=== PATIENT | male | born 1950 | race Two or more races ===

== ENCOUNTER 2016-07-13 04:47 | Emergency (ER) | payer OTHER, MEDICAID ==
[~2016-07-13] VITALS: Ht 167.6 cm; Wt 71.7 kg
[~2016-07-13 04:47] MED LIST: CEPH-37 PO; FAM20T PO; METF-312 PO; METR500T PO; SUC1LQ PO
[2016-07-13 05:55] VITALS: BP 131/78
[2016-07-13] MEDS ORDERED: LIDOCAINE 1% HCL (LOCAL ANESTH.) INJ 20ML MDV ID ONE (06:30)
[2016-07-13] MEDS ORDERED: BACITRACIN TOP OINT 1 UD PKG TOP ONE (06:30)
[2016-07-13] MEDS ORDERED: TETANUS-DIPTH-ACEL PERTUSSIS 0.5ML SYRG IM ONE (07:15)
== END 2016-07-13 07:32 | disposition home or self-care (01) ==
LOC: ER 04:48
DX: S61.011A Laceration without foreign body of right thumb without damage to nail, initial encounter (principal); E11.9 Type 2 diabetes mellitus without complications; W26.9XXA Contact with unspecified sharp object(s), initial encounter; Y93.89 Activity, other specified; Y99.8 Other external cause status; Y92.219 Unspecified school as the place of occurrence of the external cause
CPT/HCPCS: 12002; 90471; 90715; 99283; J2001

== ENCOUNTER 2020-02-23 01:43 | Inpatient (IN) | payer MEDICARE, MEDICAID ==
[~2020-02-23] VITALS: Ht 167.6 cm; Wt 74.1 kg
[~2020-02-23 01:43] MED LIST changes: -FAM20T PO; +FAMO20TA10 PO; -METF-312 PO; +METF-370 PO; -SUC1LQ PO; +SUCR1SUS10 PO
[2020-02-23] MEDS ORDERED: MORPHINE SULFATE 4 MG/ML SYR/VIAL IV ONE (02:15)
[2020-02-23] MEDS ORDERED: ONDANSETRON HCL 4 MG/2 ML VIAL IV ONE (02:15)
[2020-02-23 03:20] LABS: Basophils # (auto) 0 10 ^3/uL (0-0.2); Eosinophils # (auto) 0 10 ^3/uL (0-0.8); Hemoglobin 15.6 g/dL (13.5-17.5); Monocytes # (auto) 0.8 10 ^3/uL (0-1.3)
[2020-02-23 03:22] LABS: Eosinophils % (auto) 0.1 % (0.0-7.0); Hematocrit 46.9 % (41.0-53.0); Lymphocytes # (auto) 1.1 10 ^3/uL (0.4-5.4); Lymphocytes % (auto) 8.9 % (10.0-50.0); Mean Corpuscular Hemoglobin 27.5 pg (28.0-32.0); Mean Corpuscular Hgb Conc. 33.3 g/dL (32.0-36.0); Mean Corpuscular Volume 82.4 fL (80.0-100.0); Neutrophils # (auto) 10.7 10 ^3/uL (1.6-8.6); Platelet Count (auto) 649 10^3/uL (140-450); Red Blood Cells 5.69 10^6/uL (4.5-5.90); Red Cell Distribution Width 13.6 % (11.8-14.3); White Blood Cell 12.6 10^3/uL (4.4-10.8)
[2020-02-23 03:29] LABS: Lactic Acid w/Reflex 2.6 mmol/L (0.4-2.0)
[2020-02-23 03:38] LABS: Alanine Aminotransferase 81 U/L (16-61); Albumin 2.7 g/dL (3.4-5.0); Amylase 113 U/L (25-115); Anion Gap 8 (5-15); BUN/Creatinine Ratio 18.7; Blood Urea Nitrogen 28 mg/dL (7-18); Calcium 7.7 mg/dL (8.5-10.1); Carbon Dioxide 22 mmol/L (21-32); Chloride 103 mmol/L (98-107); GFR African American 60 mL/min; GFR Non-African American 49 mL/min; Glucose 278 mg/dL (74-106); Lipase 135 U/L (73-393); Magnesium 2.4 mg/dL (1.6-2.6); Potassium 4.4 mmol/L (3.5-5.1); Sodium 133 mmol/L (136-145)
[2020-02-23 03:40] LABS: Alkaline Phosphatase 101 U/L (45-117); Aspartate Aminotransferase 45 U/L (15-37); Bilirubin, Total 0.3 mg/dL (0.2-1.0); Total Protein 7.9 g/dL (6.4-8.2)
[2020-02-23 03:45] LABS: INR 1.04 (0.9-1.15); Partial Thromboplastin Time 24.8 sec (23.0-31.2)
[2020-02-23] MEDS ORDERED: DOXYCYCLINE 100MG/250ML 250 ML IV ONE (04:15)
[2020-02-23] MEDS ORDERED: DexAMETHasone SOD PHOS 10MG/1ML VIAL INJ IV ONE (04:15)
[2020-02-23] MEDS ORDERED: SODIUM CHLORIDE 0.9% 1,000 ML IV ONE (04:15)
[2020-02-23] MEDS ORDERED: NITROGLYCERIN 0.4 MG SL TAB SL PRN (06:30)
[2020-02-23] MEDS ORDERED: DOCUSATE SOD 100 MG CAP PO PRN (06:30)
[2020-02-23] MEDS ORDERED: SODIUM CHLORIDE 0.9% 1,000 ML IV SCH (06:30)
[2020-02-23] MEDS ORDERED: ONDANSETRON HCL 4 MG/2 ML VIAL IV PRN (06:30)
[2020-02-23] MEDS ORDERED: ACETAMINOPHEN 500 MG TAB PO PRN (06:30)
[2020-02-23] MEDS ORDERED: MORPHINE SULF INJ 2 MG/ML SYRINGE 1ML IV PRN (06:30)
[2020-02-23] MEDS ORDERED: DEXTROSE (50%) 50ML SYRG IV PRN (06:45)
[2020-02-23 08:04] LABS: Basophils # (auto) 0 10 ^3/uL (0-0.2); Basophils % (auto) 0.1 % (0.0-2.0); Eosinophils # (auto) 0 10 ^3/uL (0-0.8); Eosinophils % (auto) 0.2 % (0.0-7.0); Lymphocytes # (auto) 0.6 10 ^3/uL (0.4-5.4); Monocytes # (auto) 0.8 10 ^3/uL (0-1.3)
[2020-02-23 08:06] LABS: Hematocrit 41.9 % (41.0-53.0); Hemoglobin 13.9 g/dL (13.5-17.5); Lymphocytes % (auto) 3.9 % (10.0-50.0); Mean Corpuscular Hemoglobin 27.5 pg (28.0-32.0); Mean Corpuscular Hgb Conc. 33.3 g/dL (32.0-36.0); Mean Corpuscular Volume 82.5 fL (80.0-100.0); Monocytes % (auto) 5.8 % (0.0-12.0); Neutrophils # (auto) 12.8 10 ^3/uL (1.6-8.6); Platelet Count (auto) 511 10^3/uL (140-450); Red Blood Cells 5.07 10^6/uL (4.5-5.90); Red Cell Distribution Width 13.6 % (11.8-14.3); White Blood Cell 14.2 10^3/uL (4.4-10.8)
[2020-02-23 08:15] LABS: Calcium 7.6 mg/dL (8.5-10.1); Magnesium 2.3 mg/dL (1.6-2.6); Potassium 4.2 mmol/L (3.5-5.1)
[2020-02-23 08:22] LABS: Albumin 2.2 g/dL (3.4-5.0); BUN/Creatinine Ratio 21.1; Bilirubin, Total 0.4 mg/dL (0.2-1.0)
[2020-02-23] MEDS ORDERED: HEPARIN SODIUM (PORCINE) 5000 UNITS/ML 1ML VIAL ONE (09:05)
[2020-02-23] MEDS: ACCU-CHEK COMFORT CURVE STRIP VI SCH ×4 (09:20→22:11)
[2020-02-23] MEDS: InsuLIN REG 1unit/0.01ml Soln (100units/ml) SC SCH ×4 (09:20→22:19)
[2020-02-23] MEDS: FAMOTIDINE (10MG/ML) 2ML VL IV SCH ×2 (09:47→22:21)
[2020-02-23] MEDS: MULTIPLE VITAMIN TAB PO SCH (09:47)
[2020-02-23] MEDS: DOXYCYCLINE 100MG/250ML 250 ML IV SCH ×2 (09:47→22:21)
[2020-02-23] MEDS: ZINC SULFATE 220mg CAP or TAB PO SCH (09:47)
[2020-02-23] MEDS: DexAMETHasone SOD PHOS 10MG/1ML VIAL INJ IV SCH (09:47)
[2020-02-23] MEDS: ASCORBIC ACID 1,000 MG TAB PO SCH (09:48)
[2020-02-23] MEDS: CHOLECALCIFEROL (VITD3) 2,000 UNIT CAP PO SCH (09:48)
[2020-02-23] MEDS ORDERED: HEPARIN SODIUM (PORCINE) 5000 UNITS/ML 1ML VIAL SC SCH (10:00)
[2020-02-23] MEDS: BUDESONIDE (INHALATION) 180 MCG IH IN SCH ×2 (10:00→22:00)
--- NOTE | 2020-02-23 10:50 | NUR ---
Telemetry admit from [facility] M WETZEL admitted to Telemetry unit after SBAR received WILLY Moon. Patient oriented to Barbi Hernandez, primary RN, unit, room, bed, and unit policies regarding patient care and visiting hours. Patient now on continuous telemetry monitoring, tele box #53 and telemetry reading on arrival to unit is SR @ 73 bpm. Bed set to lowest position/locked, bedside rails up x2, call light within reach. Instructed patient to call for assistance. Patient verbalized understanding. Will continue to monitor q1hr and prn.
[2020-02-23] MEDS: MORPHINE SULFATE 4 MG/ML SYR/VIAL IV PRN ×3 (11:30→22:22)
[2020-02-23] MEDS: ALBUTEROL SULF HFA 90MCG INH 200DOSE IN SCH ×2 (14:00→22:00)
[2020-02-23] MEDS ORDERED: REMDESIVIR PER PHARMACY IV SCH (14:00)
[2020-02-23 17:00] VITALS: BP 131/82
--- NOTE | 2020-02-23 17:30 | NUR ---
CONSENTS REMDESIVIR AND CONVALESCENT PLASMA CONSENTS PLACED IN CHART.
[2020-02-23] MEDS: SUCRALFATE 1 GM/10 ML ORAL SUSP PO SCH ×2 (18:00→22:22)
[2020-02-23] MEDS ORDERED: IOHEXOL 350 MG/ML 100ML IJ ONE (19:23)
--- NOTE | 2020-02-23 19:33 | NUR ---
CADEN SWAB CADEN SWAB COLLECTED AND WALKED TO LAB BY THIS NURSE.
[2020-02-23] MEDS: HYDROcodone-ACET 5/325MG TAB PO PRN (19:58)
[2020-02-23 20:58] LABS: CRP High Sensitivity 13.4 mg/dL (< 0.3)
[2020-02-23 22:00] VITALS: BP 114/79
[2020-02-23] MEDS ORDERED: ENOXAPARIN SOD 80 MG/0.8ML SYRINGE SC SCH (22:00)
[2020-02-23] MEDS: ENOXAPARIN SOD 80 MG/0.8ML SYRINGE SC SCH (22:21)
[2020-02-24] MEDS: HYDROcodone-ACET 5/325MG TAB PO PRN ×2 (00:09→10:30)
--- NOTE | 2020-02-24 00:15 | NUR ---
[facility] COVID 19 SWAB COLLECTED AND WALKED TO LAB. WILL CONTINUE TO MONITOR PATIENT Q1 AND PRN.
[2020-02-24 01:39] VITALS: BP 114/79
[2020-02-24 05:00] VITALS: BP 101/86
[2020-02-24] MEDS: SUCRALFATE 1 GM/10 ML ORAL SUSP PO SCH ×4 (06:57→21:41)
[2020-02-24] MEDS: ACCU-CHEK COMFORT CURVE STRIP VI SCH ×4 (06:57→22:00)
[2020-02-24] MEDS: InsuLIN REG 1unit/0.01ml Soln (100units/ml) SC SCH ×4 (07:02→23:16)
[2020-02-24] MEDS: MORPHINE SULFATE 4 MG/ML SYR/VIAL IV PRN ×3 (07:17→16:52)
--- NOTE | 2020-02-24 07:30 | NUR ---
OPENING NOTE ASSUMED CARE OF PT. ALERT AND ORIENTED. NO S/S OF SOB/DISTRESS NOTED. BED SET TO LOWEST POSITION/LOCKED. BEDSIDE RAILS UP X2, CALL LIGHT WITHIN REACH. INSTRUCTED PT TO CALL FOR ASSISTANCE. UPDATED ON POC. PT VERBALIZED UNDERSTANDING. WILL CONTINUE TO MONITOR Q 1HR AND PRN FOR CHANGES.
[2020-02-24] MEDS: BUDESONIDE (INHALATION) 180 MCG IH IN SCH ×2 (07:37→22:53)
[2020-02-24] MEDS: ALBUTEROL SULF HFA 90MCG INH 200DOSE IN SCH ×3 (07:37→22:53)
--- NOTE | 2020-02-24 07:37 | NUR ---
Respiratory note: PATIENT SEEN, PT WAS COMPLAINING OF PAIN. HR 125, RR 22, SPO2 95% ON 9L SIMPLE MASK. NO MDI'S AT BEDSIDE. WILL CALL PHARMACY.
[2020-02-24 08:11] LABS: Basophils # (auto) 0 10 ^3/uL (0-0.2); Eosinophils # (auto) 0 10 ^3/uL (0-0.8)
[2020-02-24 08:13] LABS: Hematocrit 48.7 % (41.0-53.0); Hemoglobin 15.8 g/dL (13.5-17.5); Lymphocytes # (auto) 0.8 10 ^3/uL (0.4-5.4); Lymphocytes % (auto) 4.4 % (10.0-50.0); Mean Corpuscular Hemoglobin 27.1 pg (28.0-32.0); Mean Corpuscular Hgb Conc. 32.3 g/dL (32.0-36.0); Mean Corpuscular Volume 83.9 fL (80.0-100.0); Monocytes # (auto) 0.9 10 ^3/uL (0-1.3); Monocytes % (auto) 4.6 % (0.0-12.0); Nucleated Red Blood Cells % 1.7 %; Platelet Count (auto) 585 10^3/uL (140-450); Red Blood Cells 5.81 10^6/uL (4.5-5.90); Red Cell Distribution Width 14.1 % (11.8-14.3); White Blood Cell 18.6 10^3/uL (4.4-10.8)
[2020-02-24 08:41] LABS: Albumin 2.3 g/dL (3.4-5.0); BUN/Creatinine Ratio 19.4; Bilirubin, Total 1.1 mg/dL (0.2-1.0); Calcium 8.5 mg/dL (8.5-10.1); Potassium 4.6 mmol/L (3.5-5.1); Total Protein 7.8 g/dL (6.4-8.2)
[2020-02-24 09:00] VITALS: BP 133/82
[2020-02-24] MEDS ORDERED: cefTRIAXone 1GM/50ML D5W 50 ML IV SCH (09:00)
[2020-02-24] MEDS: MULTIPLE VITAMIN TAB PO SCH (10:00)
[2020-02-24] MEDS: DexAMETHasone SOD PHOS 10MG/1ML VIAL INJ IV SCH (10:00)
[2020-02-24] MEDS: FAMOTIDINE (10MG/ML) 2ML VL IV SCH ×2 (10:01→21:40)
[2020-02-24] MEDS: ASCORBIC ACID 1,000 MG TAB PO SCH (10:05)
[2020-02-24] MEDS: ZINC SULFATE 220mg CAP or TAB PO SCH (10:05)
[2020-02-24] MEDS: CHOLECALCIFEROL (VITD3) 2,000 UNIT CAP PO SCH (10:06)
[2020-02-24] MEDS: ENOXAPARIN SOD 80 MG/0.8ML SYRINGE SC SCH ×2 (10:06→21:41)
--- NOTE | 2020-02-24 11:30 | NUR ---
MD rounds/concerns Dr. Tomas rounding and informed that patient pain management is not being effective. MD inspected patient's abdomen and suggested reduce use of opiates for pain management, per MD they can aggravate the abdominal pain. Per MD ok to continue current pain medications. No new orders received at this time will continue care.
[2020-02-24] MEDS: DOXYCYCLINE 100MG/250ML 250 ML IV SCH ×2 (11:51→21:40)
[2020-02-24 13:00] VITALS: BP 116/75
--- NOTE | 2020-02-24 13:50 | NUR ---
New orders received at this time by Dr. Tomas to start patient on Lactulose 60 ml PO one time order, scheduled Lactulose 30 ml PO q6hr for abdominal distension, Colace 100 mg PO BID, Small bowel series with Gastrografin. Orders read back and verified, will carry orders out and continue care.
[2020-02-24] MEDS ORDERED: LACTULOSE 20Gm/30ML SOLN PO ONE (14:00)
[2020-02-24 17:00] VITALS: BP 118/64
--- NOTE | 2020-02-24 18:14 | NUR ---
Hospitalist paged Patient in distress complains of pain 10/10 to abdomen. Patient is not do for next dose of Morphine at this time. Patient also requesting for different pain management medication. Awaiting call back.
[2020-02-24] MEDS: LACTULOSE 20Gm/30ML SOLN PO SCH (18:41)
--- NOTE | 2020-02-24 18:50 | NUR ---
2nd page to hospitalist Second page out to Hospitalist regarding patient in distress do to pain. Awaiting call back.
[2020-02-24 22:00] VITALS: BP 107/73
[2020-02-24] MEDS ORDERED: DOCUSATE SOD 100 MG CAP PO SCH (22:00)
[2020-02-24] MEDS ORDERED: SODIUM CHLORIDE 0.9% 1,000 ML IV SCH (23:45)
[2020-02-24] MEDS ORDERED: VANCOMYCIN PER PHARMACY 0 MG IV SCH (23:45)
[2020-02-24] MEDS ORDERED: PIPERACILLIN-TAZOB 3.375GM 100 ML IV ONE (23:45)
[2020-02-25] VITALS (14 sets, daily range): BP systolic 60–209; BP diastolic 23–125
[2020-02-25] MEDS ORDERED: VANCOMYCIN 1GM/250ML 250 ML IV ONE
--- NOTE | 2020-02-25 00:50 | NUR ---
HOSPITALIST AMARILYS MADE AWARE THAT PATIENT IS HAVING INCREASED RESPIRATION EFFORT. CURRENTLY PATIENT ON 15L NONREBREATHER AND SPO2 90% AND IS AOX4 ABLE TO ANSWER QUESTIONS. RT AT BEDSIDE. VITAL SIGNS ARE WITHIN BASELINE. NEW ORDER RECEIVED FOR ABG LAB DRAW, READ BACK AND VERIFIED, WILL IMPLEMENT. WILL CONTINUE TO MONITOR PATIENT Q1 AND PRN.
--- NOTE | 2020-02-25 01:10 | NUR ---
HOSPITALIST PAGED/CRITICAL LAB MADE MD AWARE OF CRITICAL ABG LAB RESULTS. NEW ORDERS RECEIVED FOR BIPAP, REDRAW OF ABG IN ONE HOUR, AND 1 AMP OF SODIUM BICARBONATE, READ BACK AND VERIFIED, WILL IMPLEMENT ORDERS. CURRENTLY PATIENT IS AOX4, ABLE TO ANSWER QUESTIONS, VITAL SIGNS ARE WITHIN BASELINE. WILL CONTINUE TO MONITOR Q1 AND PRN.
[2020-02-25] MEDS ORDERED: SODIUM BICARBONATE 8.4 % INJ 50ML VIAL IV ONE ×4 (01:15→08:22)
--- NOTE | 2020-02-25 02:50 | NUR ---
HOSPITALIST PAGED/CRITICAL LAB MADE HOSPITALIST AWARE OF CRITICAL ABG RESULTS. NEW ORDERS RECEIVED, READ BACK AND VERIFIED, WILL IMPLEMENT. VITAL SIGNS ARE WITHIN BASELINE. PATIENT CURRENTLY ON BIPAP. PATIENT IS AOX4, BUT ATTEMPTING TO REMOVE BIPAP, REORIENTED AND INSTRUCTED TO KEEP BIPAP ON. WILL PLACE PATIENT WITH SITTER TO PREVENT BIPAP REMOVAL. WILL CONTINUE TO MONITOR PATIENT Q1 AND PRN
[2020-02-25] MEDS ORDERED: SODIUM BICARBONATE 50ML VIAL 100 ML in D5W 5% 1,000 ML IV SCH (03:15)
--- NOTE | 2020-02-25 04:20 | NUR ---
CODE ASSIST AT THIS TIME PATIENT NOT RESPONSIVE TO TOUCH OR VOICE. CURRENTLY ON BIPAP AND ON CONTINUOS SPO2 AND SUSTAINING AT 85%-87%. CODE ASSIST CALLED, HOSPITALIST MADE AWARE. PULSE NOTED. WILL IMPLEMENT ORDERS PER MD.
[2020-02-25] MEDS ORDERED: ROCURONIUM 10MG/ML 10ML VIAL IV ONE (04:26)
[2020-02-25] MEDS ORDERED: ETOMIDATE (2MG/ML) 20ML VIAL IV ONE ×2 (04:26→10:15)
--- NOTE | 2020-02-25 04:40 | NUR ---
PT WAS INTUBATED ON FIRST ATTEMPT FOR RESP FAILURE, SUCCESSFUL ON FIRST ATTEMPT, ETT PLACEMENT WAS CONFIRMED WITH POSITIVE CAPNOMETER READING, MANUELA BS. TRANSPORTED PT TO ICU ON TRANSPORT VENT ON AC14, VT 500, PEEP 5 AND 100% FIO2. UPON ARRIVING TO ICU PT WAS PLACED ON QIANA VENT ON THE SAME SETTINGS, PT CODED AT 05:51. RR WAS DECREASED TO 10 PER COVID PROTOCOL. AFTER REGAIN ROSK RR WA INCREASED TO 24. DAY SHIFT TOOK OVER PT CARE AT THIS TIME.
--- NOTE | 2020-02-25 04:50 | NUR ---
PATIENT TRANSFERRED TO ICU TRANSFERRED PATIENT TO ICU WITH ACLS GUIDELINES. ALL BELONGINGS TAKEN WITH PATIENT. WILL ENDORSE CARE TO ICU NURSE.
--- NOTE | 2020-02-25 04:51 | NUR ---
ICU arrival: Patient was transported to ICU room 101 with supervisor hide house at bedside. Upon connecting the patient to the monitor, he was in pulseless vtach. Code blue was initiated and obtained ROSC. Patient was started on Levophed at this time related to severely low blood pressure. Mercado catheter, right nare NGT were inserted. IV 22 g to left forearm inserted.
--- NOTE | 2020-02-25 05:10 | NUR ---
SPOKE WITH FAMILY SPOKE WITH PATIENT'S SON MARLI, PASSWORD WAS PROVIDED. UPDATED ON PATIENT CHANGE OF STATUS AND TRANSFER TO ICU. ALL QUESTIONS AND CONCERNS ANSWERED. PER SON, FAMILY WANTS TO CONTINUE FULL CODE STATUS. Addendum: 02/25/20 at 0835 by Jaqueline Lorenzo RN MARLI (PATIENT'S SON) PHONE NUMBER: [phone]
[2020-02-25] MEDS ORDERED: NOREPINEPHRINE 8 MG/250ML KIT 250 ML IV ONE (05:19)
--- NOTE | 2020-02-25 05:20 | NUR ---
SPOKE WITH FAMILY SPOKE WITH PATIENT'S SON GAYB, PASSWORD WAS PROVIDED. UPDATED ON PATIENT'S CHANGE OF STATUS. ALL QUESTIONS AND CONCERNS ANSWERED. INFORMED OF PATIENT TRANSFER TO ICU.
--- NOTE | 2020-02-25 05:35 | NUR ---
NGT: 16 Fr NGT placed via pt's left nare for suction and stomach decompressionby primary RN, Karon Bell. Placement of NGT confirmed by this R.N. via auscultation and by aspiration of gastric contents. NGT secured at 65cm and placed to LIS w/ thin, brown secretions noted.
--- NOTE | 2020-02-25 05:45 | NUR ---
FLUID BOLUS: 1 liter 0.9% NS fluid bolus begun. D5%NS w/ 2 amps NaHCO3 decreased to 60ml/hr as ordered following successful resuscitation of pt.
[2020-02-25] MEDS ORDERED: PHENYLEPHRINE IV 0 ML IV ONE (05:57)
[2020-02-25] MEDS: ALBUTEROL SULF HFA 90MCG INH 200DOSE IN SCH (06:00)
[2020-02-25] MEDS ORDERED: PIPERACILLIN-TAZOB 3.375GM 100 ML IV SCH (06:00)
[2020-02-25] MEDS: LACTULOSE 20Gm/30ML SOLN PO SCH ×2 (06:00)
[2020-02-25] MEDS ORDERED: EPINEPHrine HCL 250 ML IV ONE (06:01)
[2020-02-25] MEDS: BUDESONIDE (INHALATION) 180 MCG IH IN SCH (06:03)
--- NOTE | 2020-02-25 06:03 | NUR ---
UNABLE TO PROPERLY ADMINISTER MDI/DPI THROUGH VENTILATOR. WILL JENNY GARCIA TO CHANGE ORDER TO KEVIN RUIZ.
[2020-02-25] MEDS ORDERED: VASOPRESSIN 20 UNIT/ML ONE (06:07)
[2020-02-25] MEDS ORDERED: NOREPINEPHRINE 8 MG/250ML KIT 250 ML IV SCH (06:15)
[2020-02-25] MEDS ORDERED: MIDAZOLAM DRIP 50 mg/50mL 50 ML IV SCH (06:15)
[2020-02-25] MEDS ORDERED: ACETAMINOPHEN 650 mg PER 20.3 mL UD NG PRN (06:30)
[2020-02-25] MEDS: SUCRALFATE 1 GM/10 ML ORAL SUSP PO SCH (07:00)
[2020-02-25] MEDS: ACCU-CHEK COMFORT CURVE STRIP VI SCH (07:00)
[2020-02-25] MEDS: InsuLIN REG 1unit/0.01ml Soln (100units/ml) SC SCH (07:00)
--- NOTE | 2020-02-25 07:00 | NUR ---
Timeline: Patient's blood pressure very low to unable to obtain. Vasopressin, epinephrine, levophed, bicarb 2 amps, and 1 liter NS started/given. All maxed on pressors, new order for bonnie obtained by day shift RN. Patient still in Afib RVR 120s-180s and unable to get blood pressure at this time. Central line in right groin TLC inserted by Dr. Bui.
--- NOTE | 2020-02-25 07:30 | NUR ---
BP LOW,UNABLE TO OBTAIN ABG AT THIS TIME. WILL TRY AGAIN.RN AT BEDSIDE.
[2020-02-25] MEDS ORDERED: PHENYLEPHRINE INJ 40 MG in SODIUM CHL 0.9% 250 ML IV SCH (08:15)
[2020-02-25] MEDS ORDERED: VASOPRESSIN 50 UNITS in D5W 5% 247.5 ML IV SCH (08:15)
[2020-02-25] MEDS ORDERED: EPINEPHrine HCL 250 ML IV SCH (08:15)
--- NOTE | 2020-02-25 08:17 | NUR ---
Code Blue note. Please see CODE sheets and Provider/MD notes regarding patient code. Family notified of code blue and updated on patient status post code.
[2020-02-25] MEDS ORDERED: EPINEPHrine HCL 1 MG/10 ML SYRG ONE (08:21)
--- NOTE | 2020-02-25 08:56 | NUR ---
FAMILY Pt family at bedside. Updated on Pt status and POC.
--- NOTE | 2020-02-25 09:00 | NUR ---
Code Blue note. Please see CODE sheets and Provider/MD notes regarding patient code. Family notified of code blue and updated on patient status post code.
--- NOTE | 2020-02-25 09:25 | NUR ---
MD/FAMILY Dr. Henriquez at bedside speaking to family regarding patient status. Family directed to chapel.
--- NOTE | 2020-02-25 09:38 | NUR ---
Code Blue note. Please see CODE sheets and Provider/MD notes regarding patient code. Family notified of code blue and updated on patient status post code.
--- NOTE | 2020-02-25 09:45 | NUR ---
PRONOUNCED; Pt. pronounced by Dr. Holly.
--- NOTE | 2020-02-25 09:58 | NUR ---
[employer]; Call placed to [facility], patient not candidate for donation due to Covid-19 positive status. Case #[id number].
[2020-02-25] MEDS ORDERED: FAMOTIDINE (10MG/ML) 2ML VL IV SCH (10:00)
--- NOTE | 2020-02-25 10:02 | NUR ---
RECREATION LEADER; Called placed to [facility] Coroner's office, await return call.
[2020-02-25] MEDS ORDERED: SUCCINYLCHOLINE CHLORIDE 20 MG/ML 10ML VIAL IV ONE (10:15)
--- NOTE | 2020-02-25 10:48 | NUR ---
RESERVATIONIST RELEASE; Special Effects Specialist released body, case #[id number]
[2020-02-25] MEDS ORDERED: GASTROGRAFIN 120 ML SOL ONE (11:26)
--- NOTE | 2020-02-25 12:11 | NUR ---
AFFORDABLE CREMATION; Contacted [facility] cremation for courtesy hold, ETA 90 minutes.
[2020-02-25] MEDS ORDERED: ATROPINE SULF 1 MG/10ml SYR IV ONE (13:38)
[2020-02-25] MEDS ORDERED: EPINEPHrine HCL 1 MG/10 ML SYRG IV ONE ×2 (13:38→13:39)
[2020-02-25] MEDS ORDERED: SODIUM BICARBONATE 8.4% INJ 50ML SYRINGE IV ONE ×2 (13:38→13:39)
--- NOTE | 2020-02-25 13:47 | NUR ---
MORTUARY RELEASE; Patient released to [facility] as a courtesy hold. Anurag Anna notified and provided telephone number of mortuary.
[2020-02-25] MEDS ORDERED: MIDAZOLAM DRIP 50 mg/50mL 50 ML IV ONE (17:02)
[2020-02-25] MEDS ORDERED: PHENYLEPHRINE IV 250 ML IV ONE (17:44)
[2020-02-25] MEDS ORDERED: AMIODARONE HCL (50 MG/ ML) 3 ML VIAL IV ONE (17:45)
[2020-02-25] MEDS ORDERED: AMIODARONE 450mg/250ml AE 250 ML IV ONE (17:45)
== END 2020-02-25 13:43 | disposition expired | DRG 208 ==
LOC: ER 01:43 → EDBD 01:43 → TELE 01:44 → TELE-EAST 10:50 → TELE-E-ADS 02-25 03:00 → ICU WEST 02-25 05:44
PROVIDERS: ADMIT Nurse Practitioner Family; ATTEND Nurse Practitioner Family
PROC: 5A1935Z Respiratory Ventilation, Less than 24 Consecutive Hours (ICD-10-PCS; principal; 2020-02-25)
PROC: 0BH17EZ Insertion of Endotracheal Airway into Trachea, Via Natural or Artificial Opening (ICD-10-PCS; 2020-02-25)
PROC: 5A12012 Performance of Cardiac Output, Single, Manual (ICD-10-PCS; 2020-02-25)
PROC: 06HC33Z Insertion of Infusion Device into Right Common Iliac Vein, Percutaneous Approach (ICD-10-PCS; 2020-02-25)
PROC: 5A09357 Assistance with Respiratory Ventilation, Less than 24 Consecutive Hours, Continuous Positive Airway Pressure (ICD-10-PCS; 2020-02-25)
DX: U07.1 COVID-19 (principal); J12.89 Other viral pneumonia; J96.01 Acute respiratory failure with hypoxia; N17.0 Acute kidney failure with tubular necrosis; E87.1 Hypo-osmolality and hyponatremia; D68.59 Other primary thrombophilia; E11.65 Type 2 diabetes mellitus with hyperglycemia; N18.30 Chronic kidney disease, stage 3 unspecified; I46.9 Cardiac arrest, cause unspecified; K57.30 Diverticulosis of large intestine without perforation or abscess without bleeding; E11.22 Type 2 diabetes mellitus with diabetic chronic kidney disease; I12.9 Hypertensive chronic kidney disease with stage 1 through stage 4 chronic kidney disease, or unspecified chronic kidney disease
CPT/HCPCS: 36415; 36600; 71045; 71275; 73501; 74176; 80053; 82140; 82150; 82728; 82805; 82962; 83036; 83605; 83615; 83690; 83735; 84484; 85025; 85379; 85610; 85730; 86141; 86850; 86900; 86901; 87040; 87426; 92950; 93970; 94003; 94640; 94660; 96361; 96365; 96375; 96376; G0378; J0171; J0696; J1100; J1815; J2250; J2405; J2543; J3490; J7060